=== PATIENT | female | born 1965 | race Caucasian/White ===

== ENCOUNTER 2017-04-20 17:23 | Emergency (ER) | payer OTHER ==
[~2017-04-20] VITALS: Ht 162.6 cm; Wt 106.6 kg
[~2017-04-20 17:23] MED LIST: ASPIRIN325 PO; CELEXA40 MG PO; HYDROCHLOROTHIA25 M2 PO; SIMCOR 1,000-21 EACH PO; VITAMIN D1000 UNI1 PO; ZESTRIL20 MG PO
[2017-04-20] MEDS ORDERED: LISINOPRIL20 MG PO (17:29)
[2017-04-20] MEDS ORDERED: OMEPRAZOLE 20 M20 M1 PO (17:29)
[2017-04-20] MEDS ORDERED: LIPITOR 20 MG T20 M1 PO (17:29)
[2017-04-20] MEDS ORDERED: KLOR-CON M2020 MEQ PO (17:29)
[2017-04-20] MEDS ORDERED: CARISOPRODOL 3350 MG PO (17:29)
[2017-04-20] MEDS ORDERED: ESCITALOPRAM OX20 MG PO (17:29)
[2017-04-20] MEDS ORDERED: ROPINIROLE HCL4 MG PO (17:30)
[2017-04-20] MEDS ORDERED: GLUCOPHAGE XR500 MG PO (17:30)
[2017-04-20] MEDS ORDERED: DOXYCYCLINE 10100 MG PO (19:49)
[2017-04-20] MEDS ORDERED: PROMETHAZINE/C118 ML PO (19:49)
[2017-04-20 20:29] VITALS: BP 129/65
== END 2017-04-20 20:30 | disposition home or self-care (01) ==
LOC: ER 17:23
DX: J18.9 Pneumonia, unspecified organism (principal); T78.40XA Allergy, unspecified, initial encounter; I10 Essential (primary) hypertension; F17.210 Nicotine dependence, cigarettes, uncomplicated; Z90.49 Acquired absence of other specified parts of digestive tract; X58.XXXA Exposure to other specified factors, initial encounter

== ENCOUNTER 2017-09-14 23:21 | Emergency (ER) | payer OTHER ==
[~2017-09-14] VITALS: Ht 162.6 cm; Wt 104.8 kg
[~2017-09-14 23:21] MED LIST changes: +CARISOPRODOL 3350 MG PO; +DOXYCYCLINE 10100 MG PO; +ESCITALOPRAM OX20 MG PO; +GLUCOPHAGE XR500 MG PO; +KLOR-CON M2020 MEQ PO; +LIPITOR 20 MG T20 M1 PO; +LISINOPRIL20 MG PO; +OMEPRAZOLE 20 M20 M1 PO; +PROMETHAZINE/C118 ML PO; +ROPINIROLE HCL4 MG PO
[2017-09-14] MEDS ORDERED: NEURONTIN600 MG PO (23:33)
[2017-09-15] MEDS ORDERED: ATIVAN1 MG PO ×2 (00:55→01:11)
[2017-09-15] MEDS ORDERED: NAPROSYN500 MG PO ×2 (00:55→01:11)
[2017-09-15 01:32] VITALS: BP 160/90
== END 2017-09-15 01:20 | disposition home or self-care (01) ==
LOC: ER 23:21
DX: G25.81 Restless legs syndrome (principal); G47.00 Insomnia, unspecified; M77.9 Enthesopathy, unspecified; M25.532 Pain in left wrist; M25.511 Pain in right shoulder; I10 Essential (primary) hypertension; E11.9 Type 2 diabetes mellitus without complications; F17.210 Nicotine dependence, cigarettes, uncomplicated; Z88.8 Allergy status to other drugs, medicaments and biological substances